=== PATIENT | male | born 1965 | race Caucasian/White ===

== ENCOUNTER 2018-06-05 17:23 | Emergency (ER) | payer BC ==
[~2018-06-05] VITALS: Ht 160 cm; Wt 79.4 kg
[2018-06-05 17:29] VITALS: BP 117/91
--- NOTE | 2018-06-05 18:57 | NUR ---
PT TAKEN TO BED CHAIR B.
[2018-06-05 20:35] VITALS: BP 112/85
--- NOTE | 2018-06-05 20:36 | NUR ---
Patient discharged with v/s stable. Written and verbal after care instructions given and explained. Patient alert, oriented and verbalized understanding of instructions. Ambulatory with steady gait. All questions addressed prior to discharge. ID band removed. Patient advised to follow up with PMD. Rx of Tamiflu, Zofran, Tylenol and Immodium given. Patient educated on indication of medication including possible reaction and side effects. Opportunity to ask questions provided and answered.
== END 2018-06-05 20:36 | disposition home or self-care (01) ==
LOC: MED 17:23
DX: R51 Headache (principal); R19.7 Diarrhea, unspecified; R11.10 Vomiting, unspecified
CPT/HCPCS: 99283